=== PATIENT | female | born 1940 | race Hispanic/Latino ===

== ENCOUNTER 2021-08-31 12:33 | Emergency (ER) | payer MEDICARE, OTHER ==
[~2021-08-31] VITALS: Ht 149.9 cm; Wt 51.3 kg
[2021-08-31] MEDS ORDERED: CEPHALEXIN500 MG PO (13:00)
== END 2021-08-31 13:35 | disposition home or self-care (01) ==
LOC: FSED 12:36
DX: N39.0 Urinary tract infection, site not specified (principal); I10 Essential (primary) hypertension; Z87.19 Personal history of other diseases of the digestive system
CPT/HCPCS: 81003; 87086; 87186; 99282

== ENCOUNTER 2022-07-10 09:19 | Emergency (ER) | payer MEDICARE ==
[~2022-07-10] VITALS: Ht 147.3 cm; Wt 48.3 kg
[~2022-07-10 09:19] MED LIST: CEPHALEXIN500 MG PO
[2022-07-10] MEDS ORDERED: CEPHALEXIN500 MG PO (10:37)
== END 2022-07-10 10:44 | disposition home or self-care (01) ==
LOC: FSED 10:03
DX: R30.0 Dysuria (principal); N30.00 Acute cystitis without hematuria; I10 Essential (primary) hypertension; K21.9 Gastro-esophageal reflux disease without esophagitis
CPT/HCPCS: 81003; 99283